=== PATIENT | female | born 1960 | race Caucasian/White ===

== ENCOUNTER 2016-10-14 06:29 | Day surgery (SDC) | payer BC ==
[2016-10-11 09:58] LABS: HEMATOCRIT 38.8 % (36.0-48.0); HEMOGLOBIN 13.4 g/dL (12.0-16.0)
[2016-10-11 10:10] LABS: CALCIUM, SERUM 8.5 MG/DL (8.5-10.4); CHLORIDE, SERUM 107 MMOL/L (96-112); CO2 (CARBON DIOXIDE) 27 MMOL/L (24-34); CREATININE 1.09 MG/DL (0.55-1.02); GFR AFRICAN AMERICAN 65 ML/MIN (>=60); GFR NON AFRICAN AMERICAN 56 ML/MIN (>=60); GLUCOSE, SERUM 104 MG/DL (60-99); POTASSIUM, SERUM 3.7 MMOL/L (3.5-5.3); SODIUM, SERUM 142 MMOL/L (135-148)
[2016-10-11 10:11] LABS: BUN (BLOOD UREA NITROGEN) 16 MG/DL (6-23)
--- NOTE | ~2016-10-14 | OP ---
Record Of Operation [facility] [address] [place]. [address] NAME: YUNIOR MCGOVERN : 56 STATUS : [facility]#: [id number] AGE: 56 ADM/REG DATE : 10/14/16 MR#: [id number] REPORT SERV DATE: 10/14/16 DICTATED BY: ANKIT PRYOR DATE: 10/14/16 REPORT STATUS : Draft TRANSCRIBED BY: MODJohn DATE: 10/14/16 DATE OF PROCEDURE: PREOPERATIVE DIAGNOSIS: Left breast cancer. POSTOPERATIVE DIAGNOSIS: Left breast cancer. PROCEDURE: 1. Placement of a right internal jugular venous port. 2. Intraoperative fluoroscopy with interpretation. 3. Intraoperative ultrasound for venous access. INDICATION FOR THE PROCEDURE: Ms. Mcgovern is a healthy 56-year-old female, who has been treated with bilateral mastectomy and reconstruction for stage IIA breast cancer. All her lymph nodes were negative. This was a fairly aggressive 2.[address] Eduin Pina has met with the patient and they have decided to proceed with adjuvant chemotherapy secondary to Oncotype results. The patient will be starting chemotherapy tomorrow. Plan is for a port placement on the right side using internal jugular access today. OPERATIVE FINDINGS: After appropriate consent was noted on the chart, the patient was taken to the operating room in supine position. She was placed under monitored anesthesia without complications. Her bilateral upper extremities were tucked, a shoulder roll was placed. An ultrasound was utilized to note the right internal jugular vein was in the normal anatomic position and patent. The bilateral chest wall and neck were prepped and draped in sterile fashion. The draped ultrasound probe was again utilized to visualize the right internal jugular vein. Local anesthetic was infiltrated in the skin and soft tissue overlying the vein. Under direct ultrasound guidance, the Seldinger needle was utilized to access the vein with a single pass. Nonpulsatile venous appearing blood was noted in the syringe and the syringe removed. The wire was passed through the needle with ease and fluoroscopy noted the wire to be in good position in the vena cava. The needle was removed from the tissues and the wire was secured to the drapes for later use. The local anesthetic was utilized to anesthetize the port pocket and incision was made with a #15 blade. The port pocket was created with Bovie cauterization and stay sutures placed at the 3 o'clock and 9 o'clock positions with Prolene 3-0. At this point, an 11 blade was utilized to lengthen the access site in the neck. A tunnel was created with a tunneling device from the port pocket to the access site in the neck. The catheter was pulled through this new subcutaneous tunnel without problem. At this point, the vein was dilated using the dilator with tear-away sheath. With constant movement of the wire, the dilator and sheath were placed over the wire. The vein was dilated with no resistance. The dilator and wire were removed leaving the sheath in the vein. The catheter was passed into the sheath and the sheath torn away. Fluoroscopy was utilized to pull the catheter tip back to the atriocaval junction. The catheter was then cut for length to secure to the port with the port pocket with the securing device. Villatoro needle was attached, heparinized saline was utilized to note that the port aspirated and flushed with ease. The port was then packed with heparinized saline. The port was secured into place with the two stay sutures. Final shot of fluoroscopy noted the catheter tip to sit at the atriocaval junction. The port is in good position with no Record Of Operation [address] [address] NAME: YUNIOR MCGOVERN : 56 STATUS : [facility]#: [id number] AGE: 56 ADM/REG DATE : 10/14/16 MR#: [id number] REPORT SERV DATE: 10/14/16 DICTATED BY: ANKIT PRYOR DATE: 10/14/16 REPORT STATUS : Draft TRANSCRIBED BY: HARISH DATE: 10/14/16 tethering or kinking of the catheter. The wound was copiously irrigated with warm saline and hemostasis achieved. The incision was closed in two layers of Monocryl. The skin was cleansed and dried. Dermabond overlaid. Once the Dermabond had dried, Telfa and Tegaderm were placed. The patient was awoken from anesthesia without any complication and taken to the PACU in stable condition for recovery. All counts were correct at the end of the case. ESTIMATED BLOOD LOSS: 10 mL. COMPLICATIONS: None. SPECIMENS: None. A chest x-ray will be obtained in recovery to ensure no pneumothorax, hemothorax, and that the catheter tip appears to be in good position. MALLORIE/MODL Ankit Pryor MD / [id number] CC: MD Bruno Renee M.D. [facility] Eduin Pina M.D.
[~2016-10-14 06:29] MED LIST: ADVIL PO; AT25 PO; CLARIT10 PO; HALF81 PO; K500 PO; PCET PO; PERCOCET1 TA2 PO; PROMETRIUM200 MG PO; PROVERA2.5 MG PO; ZESTORETIC PO
== END 2016-10-14 13:53 | disposition home or self-care (01) ==
LOC: SDC 06:29
PROVIDERS: Surgery Surgical Oncology
PROC: 05HM33Z Insertion of Infusion Device into Right Internal Jugular Vein, Percutaneous Approach (ICD-10-PCS; 2016-10-14)
PROC: B543ZZA Ultrasonography of Right Jugular Veins, Guidance (ICD-10-PCS; principal; 2016-10-14 07:45)
DX: C50.912 Malignant neoplasm of unspecified site of left female breast (principal); H91.8X2 Other specified hearing loss, left ear; Z90.13 Acquired absence of bilateral breasts and nipples; Z88.5 Allergy status to narcotic agent; Z79.02 Long term (current) use of antithrombotics/antiplatelets; Z79.899 Other long term (current) drug therapy; Z97.4 Presence of external hearing-aid; Z98.890 Other specified postprocedural states
CPT/HCPCS: 71010; 77001; 80048; 85014; 85018; A9270-GY; C1751; J0690; J2250; J2405; J3010